=== PATIENT | female | born 1960 | race Caucasian/White ===

== ENCOUNTER 2017-11-17 22:42 | Inpatient (IN) | payer OTHER ==
[2017-11-17] MEDS ORDERED: BISACODYL (EC) 5 MG TAB PO (23:30)
[2017-11-17] MEDS ORDERED: ACETAMINOPHEN 325 MG TAB PO (23:30)
[2017-11-17] MEDS ORDERED: DOCUSATE SODIUM 100 MG CAP PO (23:30)
[2017-11-17] MEDS ORDERED: NACL 0.9% 3 ML SYG IV (23:30)
[2017-11-17] MEDS ORDERED: ONDANSETRON 4 MG INJ IV (23:30)
[2017-11-17 23:32] LABS: ADD MAN DIFF? NO
[2017-11-17 23:33] LABS: WHITE BLOOD COUNT 13.2 10^3/ul (4.8-10.8)
[2017-11-17 23:33] LABS: BASOPHIL # 0.1 10^3/ul (0.0-0.1); BASOPHILS % 0.5 % (0.0-2.0); EOSINOPHILS # 1.7 10^3/ul (0.0-0.5); EOSINOPHILS % 12.7 % (0.0-7.0); HEMATOCRIT 38.2 % (37.0-47.0); HEMOGLOBIN 13.4 g/dl (12.0-16.0); LYMPHOCYTES # 3.7 10^3/ul (0.8-2.9); LYMPHOCYTES % 28.1 % (15.0-51.0); MEAN CORPUSCULAR HEMOGLOBIN 32.2 pg (29.0-33.0); MEAN CORPUSCULAR HGB CONC 35.1 g/dl (32.0-37.0); MEAN CORPUSCULAR VOLUME 91.8 fl (82.0-101.0); MEAN PLATELET VOLUME 9.5 fl (7.4-10.4); MONOCYTE # 0.5 10^3/ul (0.3-0.9); MONOCYTES % 3.9 % (0.0-11.0); NEUTROPHIL # 7.1 10^3/ul (1.6-7.5); NEUTROPHILS % 54.3 % (39.0-77.0); PLATELET COUNT 252 10^3/UL (140-415); RED BLOOD COUNT 4.16 10^6/ul (4.20-5.40); RED CELL DISTRIBUTION WIDTH 13.3 % (11.5-14.5)
[2017-11-17 23:54] LABS: ALANINE AMINOTRANSFERASE 28 IU/L (13-69); ALBUMIN 3.3 g/dl (3.3-4.9); ALBUMIN/GLOBULIN RATIO 1.17; ALKALINE PHOSPHATASE 92 IU/L (42-121); ANION GAP 9 (8-16); ASPARTATE AMINO TRANSFERASE 19 IU/L (15-46); BILIRUBIN,INDIRECT 0.5 mg/dl (0-1.1); BILIRUBIN,TOTAL 0.5 mg/dl (0.2-1.3); BLOOD UREA NITROGEN 11 mg/dl (7-20); CALCIUM 9.1 mg/dl (8.4-10.2); CARBON DIOXIDE 28 mmol/L (21-31); CHLORIDE 109 mmol/L (97-110); CREATININE 0.77 mg/dl (0.44-1.00); GLUCOSE 97 mg/dl (70-220); POTASSIUM 3.7 mmol/L (3.5-5.1); SODIUM 142 mmol/L (135-144); TOTAL PROTEIN 6.1 g/dl (6.1-8.1)
[2017-11-18] MEDS: SOD CHLORIDE 0.9% 250 ML IV (01:00)
[2017-11-18 01:24] LABS: CREATINE KINASE 37 IU/L (23-200)
[2017-11-18 01:26] LABS: MAGNESIUM 1.6 mg/dl (1.7-2.5)
[2017-11-18 01:33] LABS: CK INDEX 1.8; CK-MB 0.68 ng/ml (0.0-2.4)
[2017-11-18 01:37] LABS: TROPONIN-I < 0.012 ng/ml (0.000-0.120)
[2017-11-18 01:41] LABS: ETHANOL < 10.0 mg/dl
[2017-11-18 01:42] LABS: LACTIC ACID 3.5 mmol/L (0.5-2.0)
[2017-11-18] MEDS ORDERED: VANCOMYCIN IV PER PHARMACY XX (02:00)
[2017-11-18 02:41] LABS: ERYTHROCYTE SEDIMENTATION RATE 7 mm/Hr (0-30)
[2017-11-18] MEDS: PIPER-TAZO 3.375 GM IV (PMX) 100 ML IVPB ×3 (02:46→11:19)
[2017-11-18] MEDS: MAGNESIUM SULFATE 2 GM/50 ML 50 ML IVPB (03:36)
[2017-11-18] MEDS: VANCOMYCIN 1 GM 250 ML IVPB (05:13)
[2017-11-18 06:55] LABS: ADD MAN DIFF? NO
[2017-11-18 07:02] LABS: BASOPHIL # 0.1 10^3/ul (0.0-0.1); BASOPHILS % 0.6 % (0.0-2.0); EOSINOPHILS # 1.7 10^3/ul (0.0-0.5); EOSINOPHILS % 17.5 % (0.0-7.0); HEMATOCRIT 35.8 % (37.0-47.0); HEMOGLOBIN 12.3 g/dl (12.0-16.0); LYMPHOCYTES # 3.5 10^3/ul (0.8-2.9); LYMPHOCYTES % 35.1 % (15.0-51.0); MEAN CORPUSCULAR HEMOGLOBIN 31.9 pg (29.0-33.0); MEAN CORPUSCULAR HGB CONC 34.4 g/dl (32.0-37.0); MEAN PLATELET VOLUME 9.5 fl (7.4-10.4); MONOCYTE # 0.5 10^3/ul (0.3-0.9); MONOCYTES % 5.2 % (0.0-11.0); NEUTROPHIL # 4.1 10^3/ul (1.6-7.5); NEUTROPHILS % 41.3 % (39.0-77.0); PLATELET COUNT 235 10^3/UL (140-415); RED BLOOD COUNT 3.85 10^6/ul (4.20-5.40); RED CELL DISTRIBUTION WIDTH 13.5 % (11.5-14.5)
[2017-11-18 07:02] LABS: WHITE BLOOD COUNT 9.9 10^3/ul (4.8-10.8)
[2017-11-18 07:10] LABS: HEMOGLOBIN A1C 5.5 % (0-5.9)
[2017-11-18 07:22] LABS: ALANINE AMINOTRANSFERASE 31 IU/L (13-69); ALBUMIN 2.7 g/dl (3.3-4.9); ALBUMIN/GLOBULIN RATIO 1.08; ALKALINE PHOSPHATASE 72 IU/L (42-121); ANION GAP 6 (8-16); ASPARTATE AMINO TRANSFERASE 19 IU/L (15-46); BILIRUBIN,INDIRECT 0.5 mg/dl (0-1.1); BILIRUBIN,TOTAL 0.5 mg/dl (0.2-1.3); BLOOD UREA NITROGEN 11 mg/dl (7-20); CALCIUM 8.6 mg/dl (8.4-10.2); CARBON DIOXIDE 31 mmol/L (21-31); CHLORIDE 110 mmol/L (97-110); CHOL/HDL RATIO 3.5 RATIO; CHOLESTEROL 127 mg/dl (100-200); CREATININE 0.85 mg/dl (0.44-1.00); GLUCOSE 91 mg/dl (70-220); HDL CHOLESTEROL 36 mg/dl (37-92); LDL CHOLESTEROL,CALCULATED 63 mg/dl; MAGNESIUM 2.5 mg/dl (1.7-2.5); POTASSIUM 4.1 mmol/L (3.5-5.1); SODIUM 143 mmol/L (135-144); TOTAL PROTEIN 5.2 g/dl (6.1-8.1); TRIGLYCERIDES 142 mg/dl (0-149)
[2017-11-18 07:52] LABS: THYROID STIMULATING HORMONE 0.309 MIU/L (0.465-4.680)
[2017-11-18] MEDS ORDERED: NON-FORMULARY/PATIENT OWN MED (Omeprazole* 40 MG) PO (09:00)
[2017-11-18] MEDS: PANTOPRAZOLE (EC) 40 MG TAB PO (11:10)
[2017-11-18] MEDS ORDERED: VANCOMYCIN 750 MG in SOD CHLORIDE 0.9% 150 ML IVPB (16:00)
[2017-11-18] MEDS: ATORVASTATIN 10 MG TAB PO (20:27)
[2017-11-18] MEDS: MELATONIN 3 MG TABLET PO (23:16)
[2017-11-18] MEDS: ESCITALOPRAM 10 MG TAB PO (23:16)
[2017-11-19] MEDS: PANTOPRAZOLE (EC) 40 MG TAB PO (05:29)
[2017-11-23 11:51] LABS: PROCALCITONIN 0.26 ng/mL (<0.10)
== END 2017-11-19 11:55 | disposition home or self-care (01) | DRG 312 ==
LOC: TEL 22:42 → 2NE 11-18 18:46
DX: R55 Syncope and collapse (principal); G89.29 Other chronic pain; M54.9 Dorsalgia, unspecified; F32.9 Major depressive disorder, single episode, unspecified; F17.200 Nicotine dependence, unspecified, uncomplicated; R26.81 Unsteadiness on feet; T50.905A Adverse effect of unspecified drugs, medicaments and biological substances, initial encounter
CPT/HCPCS: 71045; 80053; 80061; 80307; 82550; 82553; 83036; 83605; 83735; 84145; 84443; 84484; 85025; 85651; 87040; 87075; 93306; 93880; 97110; 97116; 97162; 97530